=== PATIENT | male | born 1995 | race Caucasian/White ===

== ENCOUNTER 2023-09-16 15:35 | Emergency (ER) | payer OTHER, SELFPAY ==
[2023-09-16 15:44] VITALS: BP 111/68; PULSE 87; RESP 16; TEMP 36.2; O2SAT 96
--- NOTE | 2023-09-16 16:00 | ED.GENADULT ---
HPI - General Adult General Chief complaint: Nausea/Vomiting/Diarrhea Stated complaint: Abdo pain/diarrhea Source: patient and RN notes reviewed History of Present Illness HPI narrative: 27 yo M presents to urgent care with complaints of diarrhea x 2-3 days and intermittent abdominal pains. Pt states his pain got worse today after he took some Imodium and he had a BM that was weird to him. Pt brought in a picture of the BM which appeared to be whitish/garcia in color, fluffy, and had some red tinge to it. Pt states after he had this BM, he felt much better. Pt reports nausea earlier but nothing since. Pt states he was having diarrhea almost every 5 minutes last night. Pt denies any vomiting, fevers, chills, or other complaints. Pt denies any other person in his household being sick. Related Data Home Medications Medication Instructions Recorded Confirmed aripiprazole 5 mg tablet 5 mg PO DAILY 09/16/23 09/16/23 Allergies Allergy/AdvReac Type Severity Reaction Status Date / Time azithromycin Allergy Hives Verified 09/16/23 15:48 [From Zithromax Z-Aj] Penicillins Allergy Hives Verified 09/16/23 15:48 Review of Systems Review of Systems: CONSTITUTIONAL: Denies fever, chills, or sweats. EYES: Denies visual changes, redness, or discharge. ENT: Denies otalgia and sore throat CARDIOVASCULAR: Denies chest pain, palpitations, or edema. RESPIRATORY: Denies cough or dyspnea. GASTROINTESTINAL:Diarrhea and intermittent abdominal pain GENITOURINARY: Denies dysuria or hematuria. SKIN: Denies rash or itching. MUSCULOSKELETAL: Denies back pain, joint pain, or myalgia. NEUROLOGIC: Denies headache, numbness, or weakness. Pertinent positives per HPI. PMFSH Comments At the time of my signature, I reviewed and agree with the nursing past medical, surgical, social, and family history. There is no relevant family history pertinent to the patient complaint. Exam Narrative: GENERAL: This is a well-nourished, well-developed patient, in no apparent distress. HEAD: normocephalic, atraumatic. EYES: Sclera clear/white. Vision is grossly intact. EARS: External ears normal, auditory canals clear and without drainage. Hearing grossly intact. NOSE: External nose normal with no obvious nasal discharge, nares without redness, no rhinorrhea. THROAT: Mucous membranes moist, posterior pharynx clear. NECK: Neck supple, non-tender without lymphadenopathy, masses or thyromegaly. CARDIOVASCULAR: Regular rate and rhythm without murmurs, gallops, or rubs. RESPIRATORY: Clear to auscultation. Breath sounds equal bilaterally. No wheezes, rales, or rhonchi. GASTROINTESTINAL: Abdomen soft, nondistended. Bowel sounds are present. No hepato-splenomegaly, or palpable masses. No guarding. Mild tenderness just right of the umbilicus and left mid abdomen. No tenderness in the LLQ, RLQ, RUQ, LUQ, or epigastric area. SKIN: warm, intact with no suspicious lesions or rash, good texture and turgor. NEURO: awake, alert, and oriented to person, place and time. There were no obvious focal neurologic abnormalities. BACK: Nontender without deformity or crepitus. No flank tenderness. Course Course Level of Care: Express Care Visit Vital Signs Vital signs: Vital Signs Temperature 97.1 F L 09/16/23 15:44 Pulse Rate 87 09/16/23 15:44 Respiratory Rate 16 09/16/23 15:44 Blood Pressure 111/68 09/16/23 15:44 Pulse Oximetry 96 09/16/23 15:44 Oxygen Delivery Room Air 09/16/23 15:44 Temperature 97.1 F L 09/16/23 15:44 Pulse Rate 87 09/16/23 15:44 Respiratory Rate 16 09/16/23 15:44 Blood Pressure 111/68 09/16/23 15:44 Pulse Oximetry 96 09/16/23 15:44 Oxygen Delivery Room Air 09/16/23 15:44 reviewed Medical Decision Making MDM Narrative Medical decision making narrative: You've been diagnosed with a possible viral illness that would not require antibiotics at this time. You may take Imodium for diarrhea and the [place]
== END 2023-09-16 16:15 | disposition home or self-care (01) ==
PROVIDERS: Emergency Provider Nurse Practitioner Family
DX: K52.9 Noninfective gastroenteritis and colitis, unspecified (principal)
CPT/HCPCS: 99213; G0463